=== PATIENT | male | born 1970 | race Caucasian/White ===

== ENCOUNTER 2021-07-15 13:49 | Emergency (ER) | payer MEDICAID ==
[~2021-07-15 13:49] MED LIST: Aspirin 81 MG Tab.Chew PO ONE; Sodium Chloride 0.9% 1,000 ML IV ONE; Sodium Chloride 0.9% 10 ML Syringe FLUSH PRN; Sodium Chloride 0.9% 2.5 ML Syringe FLUSH PRN
[2021-07-15] MEDS ORDERED: Sodium Chloride 0.9% 2.5 ML Syringe FLUSH PRN (13:50)
[2021-07-15] MEDS ORDERED: Heparin Sodium 5,000 Units/ML Vial IVPUSH ONE (13:50)
[2021-07-15] MEDS ORDERED: Sodium Chloride 0.9% 10 ML Syringe FLUSH PRN (13:50)
--- NOTE | 2021-07-15 13:57 | EDM.PDOC ---
ED HPI GENERAL MEDICAL PROBLEM - General Chief Complaint: Chest Pain Stated Complaint: HEART ATTACK Time Seen by Provider: 07/15/21 13:52 - History of Present Illness INITIAL COMMENTS - FREE TEXT/NARRATIVE: History of present illness: [] Patient had onset of chest pain 1 hour prior to arrival. He has taken Cialis last night. He does take testosterone supplement. Patient was noted by EMS to have a STEMI. Patient has chest pain slightly relieved with morphine and nitro not given because contraindicated because of the low blood pressure and inferior wall DE. Review of systems: As per history of present illness and below otherwise all systems reviewed and negative. Past medical history: As per history of present illness and as reviewed below otherwise noncontributory. Surgical history: As per history of present illness and as reviewed below otherwise noncontributory. Social history: No reported history of drug or alcohol abuse. Family history: As per history of present illness and as reviewed below otherwise noncontributory. Physical exam: Constitutional - well developed, well-nourished and in no acute distress HEENT - normocephalic, no evidence of trauma - external nose and mouth normal - no mass in neck and no JVD - mucosae moist EYES - full EOM, PERRL, no icterus - no evidence of inflammation, injection, or drainage Respiratory - no respiratory distress, equal bilateral expansion, lungs clear to auscultation and no abnormal lung sounds Cardiovascular - Regular Rhythm with S1 and S2 appreciated and no murmur, gallop or rub. GI - abdomen soft without distension or organomegaly - normal bowel sounds - no guard or rebound Musculoskeletal no gross deformity of long bones or joints - no tenderness, swelling or edema Neurologic - Alert and oriented times four - CN II-XII grossly intact - motor sensory and coordination symmetrically normal Psychiatric - appropriate mood and affect with normal thought content Hematologic - No petechiae or purpura - mucosa appropriate color and sclera not pale - normal nail bed color and refill Integument -pale and slightly diaphoretic no rash or evidence of trauma - normal turgor Diagnostics: [] Therapeutics: [] Impression: [] Plan: [] Definitive disposition and diagnosis as appropriate pending reevaluation and review of above. ED ROS GENERAL - Review of Systems Review Of Systems: Comprehensive ROS is negative, except as noted in HPI. ED EXAM, GENERAL - Physical Exam Exam: See Below Free Text/Narrative:: My physical exam is in the HPI #1 Interpretation EKG Interpretation Comments: EKG done 07/15/2021 at 1:49 PM shows a sinus rhythm or possible junctional rhythm with ME interval not well measured rate [address] [place] [address] elevation in 2 3 aVF V5 and V6 its greater than [address] depression in V1 V2 and V3 as well as aVL. Impression STEMI Course - Vital Signs Text/Narrative:: Discussed with the director of strategic initiatives and [place] and because t here is a helicopter available in the [facility] available we think we can get him to [facility] and less than 100 minutes from arrival. Thrombolytics withheld but heparin and aspirin ordered. Patient to be transferred emergently for emergent intervention. - Orders/Labs/Meds Orders: Active Orders 24 hr Category Date Time Status Chest 1V Frontal [CR] Stat Exams 07/15/21 13:49 Ordered COMPREHENSIVE METABOLIC PN,CMP [CHEM] Stat Lab 07/15/21 13:53 Received COVID-19/FLU A+B [MOLEC] Stat Lab 07/15/21 13:55 Received INR,PT,PROTHROMBIN TIME [COAG] Stat Lab 07/15/21 13:53 Received PTT,PARTIAL THROMBOPLSTIN TIME [COAG] Stat Lab 07/15/21 13:53 Received TROPONIN I [CHEM] Stat Lab 07/15/21 13:53 Received DOPamine/Dextrose 5%-Water [DOPamine in D5W 400 MG/250 Med 07/15/21 14:30 Active ML] 400 mg in 250 ml IV ASDIRECTED Heparin Sodium/0.45% NaCl [Heparin 25,000 Units in 1/2 Med 07/15/21 14:00 Active NS 500 ML] 500 ml IV TITRATE Sodium Chloride 0.9% [Normal Saline] 1,000 ml Med 07/15/21 14:00 Active IV .Bolus Sodium Chloride 0.9% [Normal Saline] 1,000 ml Med 07/15/21 13:49 Active IV STAT Sodium Chloride 0.9% [Saline Flush] Med 07/15/21 13:49 Active 10 ml FLUSH ASDIRECTED PRN Sodium Chloride 0.9% [Saline Flush] Med 07/15/21 13:50 Active 10 ml FLUSH ASDIRECTED PRN Sodium Chloride 0.9% [Saline Flush] Med 07/15/21 13:49 Active 2.5 ml FLUSH ASDIRECTED PRN Sodium Chloride 0.9% [Saline Flush] Med 07/15/21 13:50 Active 2.5 ml FLUSH ASDIRECTED PRN Saline Lock Insert [OM.PC] Stat Oth 07/15/21 13:49 Ordered Saline Lock Insert [OM.PC] Stat Oth 07/15/21 13:50 Ordered Medication Orders Sodium Chloride (Normal Saline) 1,000 mls @ 999 mls/hr IV STAT ONE Stop: 07/15/21 14:49 Heparin Sodium/Sodium Chloride (Heparin 25,000 Units In 1/2 Ns 500 Ml) 500 mls @ 19.89 mls/hr IV TITRATE ASH; Protocol Sodium Chloride (Normal Saline) 1,000 mls @ 1,000 mls/hr IV .Bolus ONE Stop: 07/15/21 14:59 Dopamine HCl/Dextrose (Dopamine In D5w 400 Mg/250 Ml) 400 mg in 250 mls @ 87.75 mls/hr IV ASDIRECTED ASH; Protocol Sodium Chloride (Sodium Chloride 0.9% 10 Ml Syringe) 10 ml FLUSH ASDIRECTED PRN PRN Reason: Keep Vein Open Last Admin: 07/15/21 14:03 Dose: 10 ml Documented by: LINKAT Sodium Chloride (Sodium Chloride 0.9% 2.5 Ml Syringe) 2.5 ml FLUSH ASDIRECTED PRN PRN Reason: Keep Vein Open Last Admin: 07/15/21 14:03 Dose: 2.5 ml Documented by: PETRKAT Sodium Chloride (Sodium Chloride 0.9% 10 Ml Syringe) 10 ml FLUSH ASDIRECTED PRN PRN Reason: Keep Vein Open Last Admin: 07/15/21 14:03 Dose: 10 ml Documented by: LINKAT Sodium Chloride (Sodium Chloride 0.9% 2.5 Ml Syringe) 2.5 ml FLUSH ASDIRECTED PRN PRN Reason: Keep Vein Open Last Admin: 07/15/21 14:04 Dose: 2.5 ml Documented by: NIMESH Labs: Laboratory Tests 07/15/21 Range/Units 13:53 WBC 12.33 H (4.0-11.0) K/uL RBC 4.98 (4.50-5.90) M/uL Hgb 16.2 (13.0-17.0) g/dL Hct 48.8 (38.0-50.0) % MCV 98.0 (80.0-98.0) fL MCH 32.5 H (27.0-32.0) pg MCHC 33.2 (31.0-37.0) g/dL RDW Std Deviation 49.4 (28.0-62.0) fl RDW Coeff of Desi 14 (11.0-15.0) % Plt Count 266 (150-400) K/uL MPV 9.70 (7.40-12.00) fL Neut % (Auto) 68.8 (48.0-80.0) % Lymph % (Auto) 23.2 (16.0-40.0) % [place] % (Auto) 7.3 (0.0-15.0) % Eos % (Auto) 0.5 (0.0-7.0) % Baso % (Auto) 0.2 (0.0-1.5) % Neut # (Auto) 8.5 H (1.4-5.7) K/uL Lymph # (Auto) 2.9 H (0.6-2.4) K/uL [place] # (Auto) 0.9 H (0.0-0.8) K/uL Eos # (Auto) 0.1 (0.0-0.7) K/uL Baso # (Auto) 0.0 (0.0-0.1) K/uL Nucleated RBC % 0.0 /100WBC Nucleated RBCs # 0 K/uL Meds: Medications Generic Name Dose Route Start Last Admin Trade Name Wilbertoq PRN Reason Stop Dose Admin Sodium Chloride 1,000 mls @ 999 mls/hr 07/15/21 13:49 Normal Saline IV 07/15/21 14:49 STAT ONE Heparin Sodium/Sodium Chloride 500 mls @ 19.89 mls/hr 07/15/21 14:00 Heparin 25,000 Units In 1/2 Ns 500 Ml IV TITRATE ASH Protocol 8.5 UNIT/KG/HR Sodium Chloride 1,000 mls @ 1,000 mls/hr 07/15/21 14:00 Normal Saline IV 07/15/21 14:59 .Bolus ONE Dopamine HCl/Dextrose 400 mg in 250 mls @ 87.75 mls/hr 07/15/21 14:30 Dopamine In D5w 400 Mg/250 Ml IV ASDIRECTED ASH Protocol 20 MCG/KG/MIN Sodium Chloride 10 ml 07/15/21 13:49 07/15/21 14:03 Sodium Chloride 0.9% 10 Ml Syringe FLUSH 10 ml ASDIRECTED PRN Administration Keep Vein Open Sodium Chloride 2.5 ml 07/15/21 13:49 07/15/21 14:03 Sodium Chloride 0.9% 2.5 Ml Syringe FLUSH 2.5 ml ASDIRECTED PRN Administration Keep Vein Open Sodium Chloride 10 ml 07/15/21 13:50 07/15/21 14:03 Sodium Chloride 0.9% 10 Ml Syringe FLUSH 10 ml ASDIRECTED PRN Administration Keep Vein Open Sodium Chloride 2.5 ml 07/15/21 13:50 07/15/21 14:04 Sodium Chloride 0.9% 2.5 Ml Syringe FLUSH 2.5 ml ASDIRECTED PRN Administration Keep Vein Open Discontinued Medications Generic Name Dose Route Start Last Admin Trade Name Freq PRN Reason Stop Dose Admin Aspirin 324 mg 07/15/21 13:49 07/15/21 14:03 Aspirin 81 Mg Tab.Chew PO 07/15/21 13:50 Not Given ONETIME ONE Diphenhydramine HCl 25 mg 07/15/21 14:17 Diphenhydramine 50 Mg/Ml Sdv IVPUSH 07/15/21 14:18 ONETIME ONE Heparin Sodium (Porcine) 4,000 units 07/15/21 13:50 07/15/21 14:00 Heparin Sodium 5,000 Units/Ml Vial IVPUSH 07/15/21 13:51 4,000 units ONETIME ONE Administration Protocol Morphine Sulfate 2 mg 07/15/21 14:21 Morphine 2 Mg/Ml Syringe IVPUSH 07/15/21 14:22 ONETIME ONE Ondansetron HCl 4 mg 07/15/21 14:18 Ondansetron 4 Mg/2 Ml Sdv IVPUSH 07/15/21 14:19 ONETIME ONE - Re-Assessments/Exams Free Text/Narrative Re-Assessment/Exam: 07/15/21 14:00 Patient's blood pressure is 84. Liter of fluids ordered. 07/15/21 14:14 Patient's blood pressure will be corrected with dopamine and he will have morphine in addition for severe pain if his pressures over 100. Crew to take patient to the fixed wing transport is arriving now 07/15/21 14:17 Patient is nauseated and says he has chest pain in his ears are itching. See orders. Transport to fixed wing aircraft is here 07/15/21 14:17 Departure - Departure Time of Disposition: 14:30 Disposition: DC/Tfer to Acute Hospital 02 Condition: Fair Clinical Impression: Acute myocardial infarction - Discharge Information Forms: ED Department Discharge - My Orders Last 24 Hours: My Active Orders 07/15/21 14:00 Sodium Chloride 0.9% [Normal Saline] 1,000 ml IV .Bolus 07/15/21 14:30 DOPamine/Dextrose 5%-Water [DOPamine in D5W 400 MG/250 ML] 400 mg in 250 ml IV ASDIRECTED - Assessment/Plan Last 24 Hours: My Active Orders 07/15/21 14:00 Sodium Chloride 0.9% [Normal Saline] 1,000 ml IV .Bolus 07/15/21 14:30 DOPamine/Dextrose 5%-Water [DOPamine in D5W 400 MG/250 ML] 400 mg in 250 ml IV ASDIRECTED
[2021-07-15] MEDS ORDERED: Heparin Sodium/0.45% NaCl 500 ML IV SCH (14:00)
[2021-07-15] MEDS ORDERED: Sodium Chloride 0.9% 1,000 ML IV ONE (14:00)
[2021-07-15] MEDS ORDERED: diphenhydrAMINE 50 MG/ML SDV IVPUSH ONE (14:17)
[2021-07-15] MEDS ORDERED: Ondansetron 4 MG/2 ML SDV IVPUSH ONE (14:18)
[2021-07-15] MEDS ORDERED: Morphine 2 MG/ML SYRINGE IVPUSH ONE (14:21)
[2021-07-15] MEDS ORDERED: DOPamine/Dextrose 5%-Water 400 MG/250 ML BAG IV SCH (14:30)
[2021-07-15 14:39] LABS: BLOOD UREA NITROGEN,BUN 22 mg/dL (7.0-18.0); CARBON DIOXIDE,CO2 22.8 mmol/L (21.0-32.0); CHLORIDE,CL 104 mmol/L (98-107); GLUCOSE RANDOM 136 mg/dL (74-106); POTASSIUM,K 3.5 mmol/L (3.5-5.1); SODIUM,NA 139 mmol/L (136-148)
[2021-07-15 14:58] LABS: CORONAVIRUS COVID-19 NAA NEGATIVE (NEGATIVE); INFLUENZA A NAA NEGATIVE (NEGATIVE); INFLUENZA B NAA NEGATIVE (NEGATIVE)
--- NOTE | 2021-07-15 16:04 | PCM.SN.2 ---
- Free Text/Narrative Note: I did contact the patient's significant other, Gaye at [phone]. I did inform her of the change in patient status and his return to our emergency room as CPR is in progress. She will come to our emergency room instead of my not at this time.
== END 2021-07-15 14:39 ==
LOC: MW.ED 13:49
DX: I21.9 Acute myocardial infarction, unspecified (principal); Z20.822 Contact with and (suspected) exposure to COVID-19
CPT/HCPCS: 0240U; 36415; 80053; 84484; 85025; 85610; 85730; 93005; 96365; 96368; 96375; 99285; J1200; J1644; J2270; J2405; J7030

== ENCOUNTER 2021-07-15 16:19 | Emergency (ER) | payer MEDICAID ==
[2021-07-15] MEDS ORDERED: Sodium Bicarbonate 8.4% 50 MEQ/50 ML Syringe IVPUSH ONE (16:22)
[2021-07-15] MEDS ORDERED: EPINEPHrine 1:10,000 1 MG/10 ML Syringe IVPUSH ONE ×3 (16:29→16:30)
[2021-07-15] MEDS ORDERED: EPINEPHrine 1 MG/ML 30 ML MDV IVPUSH ONE ×4 (16:30)
[2021-07-15] MEDS ORDERED: Lactated Ringers 1,000 ML IV STA (16:30)
--- NOTE | 2021-07-15 17:13 | EDM.PDOC ---
ED HPI GENERAL MEDICAL PROBLEM - General Chief Complaint: Cardiovascular Problem Stated Complaint: Code blue Time Seen by Provider: 07/15/21 16:31 - History of Present Illness INITIAL COMMENTS - FREE TEXT/NARRATIVE: History of present illness: [] This patient was seen here this afternoon and diagnosed with a STEMI. The patient had inferior wall ST elevation IN with posterior wall involvement and reciprocal changes in the lateral leads suggesting a possible dominant right side with complete obstruction. was consulted and wanted to try to get him expeditiously to the [facility]. Unfortunately before he got to the fixed wing aircraft he had a respiratory arrest. Shortly after respiratory arrest he went to [facility]. He had 25 minutes of CPR and multiple rounds of epinephrine. They got rid return of spontaneous circulation were prepared to send him again when he went into arrest again. They started CPR [place] with me. They did another 20 minutes or more of CPR. On arrival he had verification of his endotracheal tube placement as well as verification of pulse with the Eloy machine. When the Eloy was stopped he had an organized rhythm on the monitor but no pulse. We continued CPR in the emergency department along with rounds of epinephrine and because of presumed prolonged downtime possible hyperkalemia we gave bicarbonate. After prolonged CPR here and multiple rounds of epinephrine we looked with the ultrasound and did not see any evidence of pneumothorax pericardial effusion or cardiac motion. Patient was pronounced . Review of systems: As per history of present illness and below otherwise all systems reviewed and negative. Past medical history: As per history of present illness and as reviewed below otherwise noncontributory. Surgical history: As per history of present illness and as reviewed below otherwise noncontributory. Social history: No reported history of drug or alcohol abuse. Family history: As per history of present illness and as reviewed below otherwise nonc ontributory. Physical exam:and in no acute distress HEENT - normocephalic, no evidence of trauma - external nose and mouth normal - no mass in neck and no JVD - mucosae moist EYES -pupils fixed and dilated-no spontaneous extraocular motion Respiratory -breath sounds right equal left with no epigastric sounds when ventilated per endotracheal tube confirming endotracheal position. Cardiovascular -pulse with Eloy and CPR no pulse without GI - abdomen with some distention. Soft. Musculoskeletal no gross deformity of long bones or joints Neurologic -no reflexes and no spontaneous evidence of life on return to the ER Psychiatric -unable to assess Integument -peripheral cyanosis but lips are pink. No gravid lividity Diagnostics: [] Therapeutics: [] Impression: [] Plan: [] Definitive disposition and diagnosis as appropriate pending reevaluation and review of above. - Related Data Allergies Allergy/AdvReac Type Severity Reaction Status Date / Time No Known Allergies Allergy Verified 07/15/21 15:23 Home Meds: Home Meds tadalafiL [Cialis] 1 dose PO ASDIRECTED 07/15/21 [History] Past Medical History - Past Health History Medical/Surgical History: Denies Medical/Surgical History Social & Family History - Family History Family Medical History: No Pertinent Family History ED ROS GENERAL - Review of Systems Review Of Systems: Unable To Obtain Reason Not Obtained: Patient not conscious ED EXAM, GENERAL - Physical Exam Exam: See Below Free Text/Narrative:: Physical exam is in the HPI Course - Vital Signs Last Recorded V/S: Last Vital Signs Temp Pulse Resp BP Pulse Ox 95 07/15/21 16:54 - Orders/Labs/Meds Orders: Active Orders 24 hr Category Date Time Status Lactated Ringers [Ringers, Lactated] 1,000 ml Med 07/15/21 16:30 Active IV NOW Medication Orders Lactated Ringer's (Ringers, Lactated) 1,000 mls @ 999 mls/hr IV NOW STA Stop: 07/15/21 17:30 Labs: Laboratory Tests 07/15/21 07/15/21 Range/Units 16:30 16:30 ABG pH 6.96 L* (7.35-7.45) ABG pCO2 93 H (35-45) mmHG ABG pO2 31 L* (80-105) mmHG ABG HCO3 21 L (22-26) mEq/L ABG Total CO2 21.1 L (23-27) mmol/L ABG Base Excess -13.6 L (-2.0-3.0) Potassium 3.5 (3.5-5.1) mmol/L Meds: Medications Generic Name Dose Route Start Last Admin Trade Name Freq PRN Reason Stop Dose Admin Lactated Ringer's 1,000 mls @ 999 mls/hr 07/15/21 16:30 Ringers, Lactated IV 07/15/21 17:30 NOW STA Discontinued Medications Generic Name Dose Route Start Last Admin Trade Name Freq PRN Reason Stop Dose Admin Epinephrine HCl 1 mg 07/15/21 16:29 Epinephrine 1:10,000 1 Mg/10 Ml Syringe IVPUSH 07/15/21 16:30 ONETIME ONE Epinephrine HCl 1 mg 07/15/21 16:30 Epinephrine 1:10,000 1 Mg/10 Ml Syringe IVPUSH 07/15/21 16:31 ONETIME ONE Epinephrine HCl 1 mg 07/15/21 16:30 Epinephrine 1:10,000 1 Mg/10 Ml Syringe IVPUSH 07/15/21 16:31 ONETIME ONE Departure - Departure Time of Disposition: 16:40 Disposition: 20 Preliminary Cause of *Q: Cardiac Arrest Clinical Impression: ST elevation IN (STEMI) Referrals: PCP,None [Primary Care Provider] - Sepsis Event Note (ED) - Focused Exam Vital Signs: Vital Signs Pulse Ox 07/15/21 16:54 95
[2021-07-16] MEDS ORDERED: Tenecteplase 50 MG Kit IV STA (07:33)
== END 2021-07-15 21:00 | disposition expired ==
LOC: MW.ED 16:19
DX: I21.3 ST elevation (STEMI) myocardial infarction of unspecified site (principal)
CPT/HCPCS: 36415; 36600; 82803; 84132; 92950; 99285-25